=== PATIENT | female | born 1985 | race Caucasian/White ===

== ENCOUNTER 2017-09-26 03:31 | Inpatient (IN) | payer BC ==
[2017-09-26] MEDS ORDERED: Sodium Chloride 0.9% 10 ML Syringe FLUSH PRN (04:23)
[2017-09-26] MEDS ORDERED: Lidocaine 1% 50 ML MDV INJECT PRN (04:23)
[2017-09-26] MEDS ORDERED: Methylergonovine 0.2 MG/1 ML Amp IM PRN (04:23)
[2017-09-26] MEDS ORDERED: Water For Irrigation,Sterile 1,000 ML Container IRR PRN (04:23)
[2017-09-26] MEDS ORDERED: Nalbuphine 10 MG/1 ML Vial IVPUSH PRN (04:23)
[2017-09-26] MEDS ORDERED: Sodium Chloride 0.9% 2.5 ML Syringe FLUSH PRN (04:23)
[2017-09-26] MEDS ORDERED: Misoprostol 200 MCG Tab PO PRN (04:23)
[2017-09-26] MEDS ORDERED: Butorphanol 1 MG/ML SDV IVPUSH PRN (04:23)
[2017-09-26] MEDS ORDERED: Carboprost Tromethamine 250 MCG/1 ML Amp IM PRN (04:23)
[2017-09-26] MEDS ORDERED: Oxytocin/0.9 % Sodium Chloride 30 UNIT/500 ML BAG IV SCH ×2 (04:30→09:15)
[2017-09-26] MEDS: Lactated Ringers 1,000 ML IV SCH ×5 (04:43→09:22)
[2017-09-26] MEDS ORDERED: fentaNYL 100 MCG/2 ML SDV ONE (05:18)
[2017-09-26] MEDS ORDERED: Ropivacaine 0.2% 2 MG/ML 20 ML SDV ONE (05:19)
[2017-09-26] MEDS ORDERED: Ropivacaine HCl/PF 100 ML ONE (05:19)
--- NOTE | 2017-09-26 06:10 | PCM.PREANE ---
Preanesthetic Assessment - Anesthesia/Transfusion/Family Hx Family History of Anesthesia Reaction: No - Review of Systems General: No Symptoms Pulmonary: No Symptoms Cardiovascular: No Symptoms Gastrointestinal: No Symptoms Neurological: No Symptoms Other: Reports: None - Physical Assessment Height: 1.52 m Weight: 78.018 kg ASA Class: 2 Mental Status: Alert & Oriented x3 Dentition: Reports: Normal Dentition - Lab Values: Laboratory Last Values WBC 10.62 K/uL (4.0-11.0) 09/26/17 04:44 RBC 4.81 M/uL (4.30-5.90) 09/26/17 04:44 Hgb 12.4 g/dL (12.0-16.0) 09/26/17 04:44 Hct 38.4 % (36.0-46.0) 09/26/17 04:44 MCV 79.8 fL (80.0-98.0) L 09/26/17 04:44 MCH 25.8 pg (27.0-32.0) L 09/26/17 04:44 MCHC 32.3 g/dL (31.0-37.0) 09/26/17 04:44 RDW Std Deviation 44.1 fl (28.0-62.0) 09/26/17 04:44 RDW Coeff of Nettie 15 % (11.0-15.0) 09/26/17 04:44 Plt Count 272 K/uL (150-400) 09/26/17 04:44 MPV 11.20 fL (7.40-12.00) 09/26/17 04:44 Nucleated RBC % 0.0 /100WBC 09/26/17 04:44 Nucleated RBCs # 0 K/uL 09/26/17 04:44 Membrane Rupture POSITIVE 09/26/17 04:00 Blood Type A POSITIVE 09/26/17 04:44 Antibody Screen NEGATIVE 09/26/17 04:44 - Allergies Allergies/Adverse Reactions: Allergies Allergy/AdvReac Type Severity Reaction Status Date / Time No Known Allergies Allergy Verified 09/26/17 04:23 - Acknowledgements Anesthesia Type Planned: Epidural Pt an Appropriate Candidate for the Planned Anesthesia: Yes Alternatives and Risks of Anesthesia Discussed w Pt/Guardian: Yes Pt/Guardian Understands and Agrees with Anesthesia Plan: Yes Additional Comments: Patient and significant other both deny any questions or concerns after risks of spinal headache, infection, bleeding and uneven anesthesia described and wish to proceed. PreAnesthesia Questionnaire Hematologic History: Reports: None (Denies any personal or family hx of bleeding or clotting problems) - Past Surgical History Female Surgical History: Reports: Breast Implant (Breast augmentation) - CURRENT (IN HOUSE) MEDS Current Meds: Current Medications Butorphanol Tartrate (Stadol) 1 mg IVPUSH Q1H PRN PRN Reason: Pain Last Admin: 09/26/17 04:49 Dose: 1 mg Carboprost Tromethamine (Hemabate Ds) 250 mcg IM ASDIRECTED PRN PRN Reason: Post Hemorrhage Lactated Ringer's (Ringers, Lactated) 1,000 mls @ 150 mls/hr IV ASDIRECTED FREIDA Last Admin: 09/26/17 05:54 Dose: 999 mls/hr Oxytocin/Sodium Chloride (Oxytocin 30 Unit/500 Ml-Ns) 30 unit in 500 mls @ 999 mls/hr IV ASDIRECTED FREIDA Lidocaine HCl (Xylocaine 1%) 50 ml INJECT .ONCE PRN PRN Reason: Laceration repair Methylergonovine Maleate (Methergine) 0.2 mg IM ASDIRECTED PRN PRN Reason: Post Hemorrhage Misoprostol (Cytotec) 200 mcg PO .ONCE PRN PRN Reason: Post Hemorrhage Nalbuphine HCl (Nubain) 10 mg IVPUSH Q1H PRN PRN Reason: Pain (severe 7-10) Sodium Chloride (Saline Flush) 10 ml FLUSH ASDIRECTED PRN PRN Reason: Keep Vein Open Sodium Chloride (Saline Flush) 2.5 ml FLUSH ASDIRECTED PRN PRN Reason: Keep Vein Open Sterile Water (Sterile Water For Irrigation) 1,000 ml IRR ASDIRECTED PRN PRN Reason: delivery Discontinued Medications Fentanyl (Sublimaze) Confirm Administered Dose 300 mcg .ROUTE .STK-MED ONE Stop: 09/26/17 05:19 Ropivacaine (Naropin 0.2%) Confirm Administered Dose 100 mls @ as directed .ROUTE .STK-MED ONE Stop: 09/26/17 05:20 Ropivacaine (Naropin 0.2%) Confirm Administered Dose 20 ml .ROUTE .STK-MED ONE Stop: 09/26/17 05:20
[2017-09-26] MEDS ORDERED: Terbutaline 1 MG/ML SDV SUBCUT PRN (09:14)
[2017-09-26] MEDS ORDERED: Ibuprofen 400 MG Tab PO PRN (13:12)
[2017-09-26] MEDS ORDERED: Docusate Sodium 100 MG Cap PO PRN (13:12)
[2017-09-26] MEDS ORDERED: oxyCODONE 5 MG Tab PO PRN (13:12)
[2017-09-26] MEDS ORDERED: Lanolin 100% Cream 7 GM Tube TOP PRN (13:12)
[2017-09-26] MEDS ORDERED: Acetaminophen 500 MG Tab PO PRN ×2 (13:12)
[2017-09-26] MEDS ORDERED: Benzocaine/Menthol 20%-0.5% Spray 78 GM Cannister TOP PRN (13:12)
[2017-09-26] MEDS ORDERED: Bisacodyl 10 MG Supp RECTAL PRN (13:12)
[2017-09-26] MEDS ORDERED: Witch Hazel Medicated Pads 40/Jar TOP PRN (13:12)
[2017-09-26] MEDS ORDERED: Ibuprofen 800 MG Tab PO PRN (13:12)
--- NOTE | 2017-09-26 17:19 | PCM48HPAN ---
Post Anesthesia Note - EVALUATION WITHIN 48HRS OF ANESTHETIC Vital Signs in Normal Range: Yes Patient Participated in Evaluation: Yes Respiratory Function Stable: Yes Airway Patent: Yes Cardiovascular Function Stable: Yes Hydration Status Stable: Yes Pain Control Satisfactory: Yes Nausea and Vomiting Control Satisfactory: Yes Mental Status Recovered: Yes
--- NOTE | 2017-09-27 07:44 | PCM.PNPP ---
- General Info Date of Service: 09/27/17 Functional Status: Reports: Pain Controlled, Tolerating Diet, Ambulating, Urinating - Review of Systems General: Reports: Weakness. Denies: Fever, Fatigue, Chills HEENT: Denies: Headaches Pulmonary: Denies: Shortness of Breath, Pleuritic Chest Pain, Cough Cardiovascular: Denies: Chest Pain, Palpitations, Dyspnea on Exertion Gastrointestinal: Denies: Abdominal Pain, Vomiting Genitourinary: Denies: Dysuria, Urgency, Incontinence Psychiatric: Denies: Confusion, Mood Lability, Anxiety - General Info Date of Service: 09/27/17 - Patient Data Vital Signs - Most Recent: Last Vital Signs Temp 36.6 C 09/27/17 04:10 Pulse 115 H 09/27/17 04:10 Resp 16 09/27/17 04:10 BP 121/67 09/27/17 04:10 Pulse Ox 96 09/27/17 04:10 Weight - Most Recent: 172 lb Lab Results - Last 24 Hours: Laboratory Results - last 24 hr 09/27/17 Range/Units 05:06 Hgb 10.4 L (12.0-16.0) g/dL Hct 32.8 L (36.0-46.0) % Med Orders - Current: Current Medications Acetaminophen (Tylenol Extra Strength) 500 mg PO Q4H PRN PRN Reason: Pain Acetaminophen (Tylenol Extra Strength) 1,000 mg PO Q4H PRN PRN Reason: Pain Benzocaine/Menthol (Dermoplast Pain Relief 20%-0.5% Sterling) 78 gm TOP ASDIRECTED PRN PRN Reason: Perineal Comfort Measure Bisacodyl (Dulcolax) 10 mg RECTAL .ONCE PRN PRN Reason: Constipation Docusate Sodium (Colace) 100 mg PO BID PRN PRN Reason: Constipation Emollient Ointment (Lansinoh Hpa) 0 gm TOP ASDIRECTED PRN PRN Reason: Sore Nipples Ibuprofen (Motrin) 400 mg PO Q4H PRN PRN Reason: Pain Ibuprofen (Motrin) 800 mg PO Q6H PRN PRN Reason: Pain Oxycodone HCl (Oxycodone) 5 mg PO Q2H PRN PRN Reason: Pain Witch Carina (Tucks) 1 pad TOP ASDIRECTED PRN PRN Reason: comfort care Discontinued Medications Butorphanol Tartrate (Stadol) 1 mg IVPUSH Q1H PRN PRN Reason: Pain Last Admin: 09/26/17 04:49 Dose: 1 mg Carboprost Tromethamine (Hemabate Ds) 250 mcg IM ASDIRECTED PRN PRN Reason: Post Hemorrhage Fentanyl (Sublimaze) Confirm Administered Dose 300 mcg .ROUTE .SNAPP' ONE Stop: 09/26/17 05:19 Last Admin: 09/26/17 21:58 Dose: Not Given Lactated Ringer's (Ringers, Lactated) 1,000 mls @ 150 mls/hr IV ASDIRECTED FREIDA Last Admin: 09/26/17 09:22 Dose: 150 mls/hr Oxytocin/Sodium Chloride (Oxytocin 30 Unit/500 Ml-Ns) 30 unit in 500 mls @ 999 mls/hr IV ASDIRECTED FREIDA Ropivacaine (Naropin 0.2%) Confirm Administered Dose 100 mls @ as directed .ROUTE .SNAPP' ONE Stop: 09/26/17 05:20 Last Admin: 09/26/17 21:59 Dose: Not Given Oxytocin/Sodium Chloride (Oxytocin 30 Unit/500 Ml-Ns) 30 unit in 500 mls @ 2 mls/hr IV TITRATE FREIDA; 2 MUNITS/MIN PRN Reason: Protocol Last Titration: 09/26/17 12:25 Dose: 999 munits/min, 999 mls/hr Lidocaine HCl (Xylocaine 1%) 50 ml INJECT .ONCE PRN PRN Reason: Laceration repair Methylergonovine Maleate (Methergine) 0.2 mg IM ASDIRECTED PRN PRN Reason: Post Hemorrhage Misoprostol (Cytotec) 200 mcg PO .ONCE PRN PRN Reason: Post Hemorrhage Nalbuphine HCl (Nubain) 10 mg IVPUSH Q1H PRN PRN Reason: Pain (severe 7-10) Ropivacaine (Naropin 0.2%) Confirm Administered Dose 20 ml .ROUTE .SNAPP' ONE Stop: 09/26/17 05:20 Last Admin: 09/26/17 21:59 Dose: Not Given Sodium Chloride (Saline Flush) 10 ml FLUSH ASDIRECTED PRN PRN Reason: Keep Vein Open Sodium Chloride (Saline Flush) 2.5 ml FLUSH ASDIRECTED PRN PRN Reason: Keep Vein Open Sterile Water (Sterile Water For Irrigation) 1,000 ml IRR ASDIRECTED PRN PRN Reason: delivery Terbutaline Sulfate (Brethine) 0.25 mg SUBCUT ASDIRECTED PRN PRN Reason: Tacysystole - Interaction Infant Disposition, : in Room with Family Infant Interaction: Holding Infant Feeding: Breastfed ; Nursed Well Support Person: - Recovery Exam Fundal Tone: Firm Fundal Level: At Umbilicus Fundal Placement: Midline Lochia Amount: Scant Lochia Color: Rubra/Red Perineum Description: Intact, Minimal Bruising/Swelling Episiotomy/Laceration: None Bladder Status: Voiding - Exam General: Alert, Oriented HEENT: Pupils Equal, Pupils Reactive Neck: Supple Lungs: Clear to Auscultation, Normal Respiratory Effort Cardiovascular: Regular Rate, Regular Rhythm GI/Abdominal Exam: Soft, Non-Tender Extremities: Non-Tender, Pedal Edema Skin: Warm Psy/Mental Status: Alert, Normal Affect, Normal Mood - Problem List & Annotations (1) Vaginal delivery SNOMED Code(s): 388625451 Code(s): O80 - ENCOUNTER FOR FULL-TERM UNCOMPLICATED DELIVERY Status: Acute Current Visit: Yes - Problem List Review Problem List Initiated/Reviewed/Updated: Yes - My Orders Last 24 Hours: My Active Orders 09/26/17 09:14 Bedrest Bathroom Privileges [RC] ASDIRECTED Communication Order [RC] ASDIRECTED Communication Order [RC] ASDIRECTED Oxygen Therapy [RC] ASDIRECTED Vaginal Exam [RC] PRN Vital Signs [RC] PER UNIT ROUTINE 09/26/17 13:12 Patient Status [ADT] Routine May Shower [RC] ASDIRECTED Up ad Shivani [RC] ASDIRECTED Vital Signs [RC] PER UNIT ROUTINE Acetaminophen [Tylenol Extra Strength] 1,000 mg PO Q4H PRN Acetaminophen [Tylenol Extra Strength] 500 mg PO Q4H PRN Benzocaine/Menthol [Dermoplast Pain Relief 20%-0.5% Sterling] 78 gm TOP ASDIRECTED PRN Bisacodyl [Dulcolax] 10 mg RECTAL .ONCE PRN Docusate Sodium [Colace] 100 mg PO BID PRN Ibuprofen [Motrin] 400 mg PO Q4H PRN Ibuprofen [Motrin] 800 mg PO Q6H PRN Lanolin [Lansinoh HPA] See Dose Instructions TOP ASDIRECTED PRN Darlene Lim [Tucks] 1 pad TOP ASDIRECTED PRN oxyCODONE 5 mg PO Q2H PRN Assess Lochia [WOMSER] Per Unit Routine Assess Uterine Involution [WOMSER] Per Unit Routine Peripheral IV Discontinue [OM.PC] Routine Resuscitation Status Routine 09/26/17 Dinner Regular Diet [DIET] - Assessment Assessment:: PPD#1 s/p , stable and afebrile. Hgb stable Would like to be discharged today if baby gets to be discharged - Plan Plan:: May be discharged today if baby is discharged Discharge instructions reviewed Nothing in the vagina for 6 weeks Continue PNV and Use OTC meds for pain Bleeding and infection precautions reviewed depression symptoms reviewed Follow up in the clinic in 6 weeks
--- NOTE | 2017-09-27 13:50 | OR ---
SURGEON: Camilla Yañez MD DATE OF PROCEDURE: 09/26/2017 PREOPERATIVE DIAGNOSES: 1. Postdates at 40 weeks' gestation. 2. Spontaneous labor. POSTOPERATIVE DIAGNOSES: 1. Postdates at 40 weeks' gestation. 2. Spontaneous labor. 3. Delivered. PROCEDURE: Spontaneous vaginal delivery. ANESTHESIA: Epidural. ESTIMATED BLOOD LOSS: 150 mL. COMPLICATIONS: None. DISPOSITION: Mother and baby stable in Labor and Delivery room, [facility]. FINDINGS: Female , weight 3370 g, score 2 and 9 at 1 and 5 minutes respectively. Thick meconium stained amniotic fluid. Nuchal cord tight x 2. Grossly normal placenta with 3-vessel cord. Intact perineum. BRIEF HISTORY: Ofelia is a 32-year-old G5, P2-0-2-2 who presented to Labor and Delivery at 40 weeks' gestation with a history of regular contractions. The was uncomplicated. GBS negative. On admission to Labor and Delivery, she was found to be 5 cm dilated. She was admitted, requested epidural, which she received. Spontaneous rupture of membrane occurred with light meconium-stained amniotic fluid. She made rapid progress to 9 cm, where she stalled for at over 2 hours; position was OP, at which stage, oxytocin augmentation was commenced. heart tracing was mainly category II with recurrent deep variables noted intermittently. With maximum dose of Pitocin of 4 milliunits per minute,she eventually became fully dilated and commenced active pushing. With pushing, minimal progress/decent was made. She was reexamined and found to be LOT. Successful manual rotation was performed, rotating head JERRICA. She continued pushing, and with the next 3 contractions after the manual rotation, she brought the baby's head down to a +4 station and was set up for delivery in modified dorsolithotomy position. The scouring pads supervisor on-call, Dr. Haq was called to be attendant for the delivery, due to the meconium staining and also the persistent category II tracing. DESCRIPTION OF PROCEDURE: She had a spontaneous vaginal delivery of a live female infant in direct occipital anterior position, thick fresh meconium was noted at delivery. Nuchal cord, tight x2 was noted. These were reduced after the head had restituted. Anterior and the posterior shoulder and the rest of the baby was then delivered without difficulty. The baby was floppy at delivery. The cord was double clamped and cut, and she was handed over to the scouring pads supervisor, Dr. Haq. With delivery of the , oxytocin infusion was changed to titration for active management of third stage of labor. Cord blood and gas samples were obtained. Placenta was delivered by controlled cord traction and appeared to be complete and intact. Uterine massage was performed. The uterus was found to be well-contracted below the umbilicus. Perineum was examined, and no lacerations were noted. Sponge, instrument, and needle counts were correct at the end of the delivery. The baby transitioned well and remained in the room with the mother. ADUMVIV / MODL /[id number]
== END 2017-09-28 12:35 | disposition home or self-care (01) | DRG 560 ==
LOC: MW.OBCHECK 03:31 → MW.OB 03:33 → MW.OBCHECK 04:38 → OBSVTOIN 12:24 → MW.OB 18:46
PROVIDERS: ADMIT Obstetrics & Gynecology; ATTEND Obstetrics & Gynecology
PROC: 10E0XZZ Delivery of Products of Conception, External Approach (ICD-10-PCS; principal; 2017-09-26)
DX: O42.02 Full-term premature rupture of membranes, onset of labor within 24 hours of rupture (principal); O77.0 Labor and delivery complicated by meconium in amniotic fluid; O69.1XX0 Labor and delivery complicated by cord around neck, with compression, not applicable or unspecified; Z3A.40 40 weeks gestation of pregnancy; Z37.0 Single live birth
CPT/HCPCS: 36415; 51702; 59025; 59409; 84112; 85014; 85018; 85027; 86850; 86900; 86901; 88307; J0595; J2590; J2795; J3010; J7120

== ENCOUNTER 2018-02-04 21:03 | Emergency (ER) | payer BC ==
--- NOTE | 2018-02-04 22:01 | EDM.PDOC ---
ED HPI GENERAL MEDICAL PROBLEM - General Chief Complaint: DOOR TENDER Problem Stated Complaint: BLOCKED MAMMARY DUCT Time Seen by Provider: 02/04/18 21:54 Source of Information: Reports: Patient History Limitations: Reports: No Limitations - History of Present Illness INITIAL COMMENTS - FREE TEXT/NARRATIVE: HISTORY AND PHYSICAL: History of present illness: Patient is a 32-year-old female who presents to the emergency room with complaints of fever, redness and tenderness to the right breast. She had a vaginal delivery in no September 2018 and since that time has been breast- feeding. Has had no complications with breast-feeding. She states she is able to pump the right breast but is still having pain. Has been using Tylenol over- the-counter for discomfort. Has previously had a episode of mastitis with her previous pregnancies/delivery and states that the symptoms are consistent with that. Review of systems: As per history of present illness and below otherwise all systems reviewed and negative. Past medical history: As per history of present illness and as reviewed below otherwise noncontributory. Surgical history: As per history of present illness and as reviewed below otherwise noncontributory. Social history: No reported history of drug or alcohol abuse. Family history: As per history of present illness and as reviewed below otherwise noncontributory. Physical exam: General: Developed and well nourished 32-year-old female. Alert and oriented. Nontoxic appearing and in no acute distress. HEENT: Atraumatic, normocephalic, pupils reactive, negative for conjunctival pallor or scleral icterus, mucous membranes moist, throat clear, neck supple, nontender, trachea midline. Lungs: Clear to auscultation, breath sounds equal bilaterally, chest nontender. Heart: S1S2, regular rate and rhythm without overt murmur. Abdomen: Soft, nondistended, nontender. Negative for masses or hepatosplenomegaly. Negative for costovertebral tenderness. Pelvis: Stable nontender. Genitourinary: Deferred. Rectal: Deferred. Extremities: Atraumatic, negative for cords or calf pain. Neurovascular unremarkable. Neuro: Awake, alert, oriented. Cranial nerves II through XII unremarkable. Cerebellum unremarkable. Motor and sensory unremarkable throughout. Exam nonfocal. Skin: Erythema and tenderness to the 6 to 8 o'clock position of the right breast. No lesions or masses noted. Not appear cellulitic. Patient was placed on dicloxacillin and 500mg; 4 times daily 7 days. Curvature with close follow-up with her DOOR TENDER. She voices understanding and is agreeable to plan of care. She denies any questions at this time. Diagnostics: [] Therapeutics: [] Impression: Mastitis Plan: 1. Please apply gentle heat compresses to the breast. Take your antibiotic as prescribed. Continue to pump the right breast (Pump & Dump). 2. Tell your DOOR TENDER that you have been evaluated in the emergency room and that treated for mastitis. Once antibiotics are complted, please see your OBGYN If you continue to have redness and tenderness - you may need additional antibiotics. 3. Follow-up with your primary care provider/DOOR TENDER in the next couple days. Return to the ED as needed and as discussed. Definitive disposition and diagnosis as appropriate pending reevaluation and review of above. Onset: Today Duration: Hour(s): Location: Reports: Chest right breast Pain Score (Numeric/FACES): 4 - Related Data Allergies Allergy/AdvReac Type Severity Reaction Status Date / Time No Known Allergies Allergy Verified 02/04/18 21:46 Home Meds: Home Meds . [No Known Home Meds] 02/04/18 [History] Past Medical History DOOR TENDER History: Reports: , Spontaneous Hematologic History: Reports: None (Denies any personal or family hx of bleeding or clotting problems) - Past Surgical History Female Surgical History: Reports: Breast Implant (Breast augmentation) Social & Family History - Family History Family Medical History: Noncontributory - Tobacco Use Smoking Status *Q: Never Smoker Second Hand Smoke Exposure: No - Caffeine Use Caffeine Use: Reports: Coffee, Soda - Recreational Drug Use Recreational Drug Use: No ED ROS GENERAL - Review of Systems Review Of Systems: ROS reveals no pertinent complaints other than HPI. ED EXAM, SKIN/RASH Exam: See Below (See dictation) Course - Vital Signs Last Recorded V/S: Last Vital Signs Temp 96.8 F 02/04/18 21:42 Pulse 130 H 02/04/18 21:42 Resp 18 02/04/18 21:42 BP 114/80 02/04/18 21:42 Pulse Ox 97 02/04/18 21:42 Departure - Departure Time of Disposition: 22:01 Disposition: Home, Self-Care 01 Clinical Impression: Mastitis - Discharge Information Instructions: Mastitis, [id number] Referrals: Nancy Bone DO [Primary Care Provider] - Additional Instructions: My general discharge The following information is given to patients seen in the emergency department who are being discharged to home. This information is to outline your options for follow-up care. We provide all patients seen in our emergency department with a follow-up referral. The need for follow-up, as well as the timing and circumstances, are variable depending upon the specifics of your emergency department visit. If you don't have a primary care physician on staff, we will provide you with a referral. We always advise you to contact your personal physician following an emergency department visit to inform them of the circumstance of the visit and for follow-up with them and/or the need for any referrals to a consulting specialist. The emergency department will also refer you to a specialist when appropriate. This referral assures that you have the opportunity for follow-up care with a specialist. All of these measure are taken in an effort to provide you with optimal care, which includes your follow-up. Under all circumstances we always encourage you to contact your private physician who remains a resource for coordinating your care. When calling for follow-up care, please make the office aware that this follow-up is from your recent emergency room visit. If for any reason you are refused follow-up, please contact the [facility] Emergency Department at and asked to speak to the emergency department charge nurse. [facility] [address] [place] [id number] 1. Please apply gentle heat compresses to the breast. Take your antibiotic as prescribed. Continue to pump the right breast (Pump & Dump). 2. Tell your DOOR TENDER that you have been evaluated in the emergency room and that treated for mastitis. Once antibiotics are complted, please see your OBGYN If you continue to have redness and tenderness - you may need additional antibiotics. 3. Follow-up with your primary care provider/DOOR TENDER in the next couple days. Return to the ED as needed and as discussed.
[2018-02-04] MEDS ORDERED: cefTRIAXone 1,000 MG in Lidocaine 1% 4 ML IM ONE (22:02)
== END 2018-02-04 22:45 | disposition home or self-care (01) ==
LOC: MW.ED 21:03
DX: N61.0 Mastitis without abscess (principal)
CPT/HCPCS: 96372; 99283; J0696

== ENCOUNTER 2019-08-16 05:38 | Inpatient (IN) | payer BC ==
[2019-08-16] MEDS ORDERED: Sodium Chloride 0.9% 2.5 ML Syringe FLUSH PRN (05:51)
[2019-08-16] MEDS ORDERED: Sodium Chloride 0.9% 10 ML Syringe FLUSH PRN (05:51)
[2019-08-16] MEDS ORDERED: Sodium Chloride 0.9% 10 ML SDV IV PRN (05:51)
[2019-08-16] MEDS ORDERED: Misoprostol 200 MCG Tab PO PRN (05:51)
[2019-08-16] MEDS ORDERED: Ondansetron 4 MG/2 ML SDV IVPUSH PRN (05:51)
[2019-08-16] MEDS ORDERED: Butorphanol 1 MG/ML SDV IVPUSH PRN (05:51)
[2019-08-16] MEDS ORDERED: Methylergonovine 0.2 MG/1 ML Amp IM PRN (05:51)
[2019-08-16] MEDS ORDERED: Water For Irrigation,Sterile 1,000 ML Container IRR PRN (05:51)
[2019-08-16] MEDS ORDERED: Lidocaine 1% 50 ML MDV INJECT PRN (05:51)
[2019-08-16] MEDS ORDERED: Nalbuphine 10 MG/1 ML Vial IVPUSH PRN (05:51)
[2019-08-16] MEDS ORDERED: Tranexamic Acid 1,000 MG in Sodium Chloride 0.9% 100 ML IV PRN (05:51)
[2019-08-16] MEDS ORDERED: Carboprost Tromethamine 250 MCG/1 ML Amp IM PRN (05:51)
[2019-08-16] MEDS ORDERED: Lactated Ringers 1,000 ML IV SCH (06:00)
[2019-08-16] MEDS ORDERED: Oxytocin/0.9 % Sodium Chloride 30 UNIT/500 ML BAG IV SCH (06:00)
[2019-08-16] MEDS ORDERED: Acetaminophen 500 MG Tab PO PRN ×2 (07:06)
[2019-08-16] MEDS ORDERED: Ibuprofen 400 MG Tab PO PRN (07:06)
[2019-08-16] MEDS ORDERED: Docusate Sodium 100 MG Cap PO PRN (07:06)
[2019-08-16] MEDS ORDERED: Bisacodyl 10 MG Supp RECTAL PRN (07:06)
[2019-08-16] MEDS ORDERED: Benzocaine/Menthol 20%-0.5% Spray 78 GM Cannister TOP PRN (07:06)
[2019-08-16] MEDS ORDERED: Lanolin 100% Cream 7 GM Tube TOP PRN (07:06)
[2019-08-16] MEDS ORDERED: Witch Hazel Medicated Pads 40/Jar TOP PRN (07:06)
[2019-08-16] MEDS ORDERED: Measles, Mumps & Rubella Vaccine 0.5 ML SDV SUBCUT ONE (07:06)
[2019-08-16] MEDS: Ibuprofen 800 MG Tab PO PRN ×2 (12:01→23:37)
--- NOTE | 2019-08-16 13:25 | OR ---
SURGEON: Dylan Michelle MD DATE OF PROCEDURE: 08/16/2019 INDICATION: A 34-year-old, G6, P3-0-2-3, at 39 weeks and 2 days presenting in spontaneous labor. She quickly progressed to 9/100/+1 with strong contractions. S/p had AROM with clear fluid. Category 1 tracing. PREOPERATIVE DIAGNOSES: 1. Intrauterine at 39 weeks 2 days. 2. Active second stage of labor. POSTOPERATIVE DIAGNOSES: 1. Intrauterine at 39 weeks 2 days. 2. Active second stage of labor. PROCEDURE: Normal spontaneous vaginal delivery. ANESTHESIA: None. FINDINGS: Ding intrauterine at 39 weeks and 2 days. Female fetus. score of 9 and 9. Weight is pending. EBL: 300cc DESCRIPTION OF PROCEDURE: The patient progressed 10/100/+2 and pushed with contractions for approximately 10 minutes. Category 1 tracing with early decelerations. The head was delivered over intact perineum, restituted ROT. No nuchal cord. The anterior shoulder was delivered easily followed by the posterior shoulder and the remaining body. Baby was crying, pink and moved all extremities immediately after delivery. The baby was placed on the maternal chest and evaluated by nursery team. Umbilical cord was clamped and cut after 60 seconds of no longer pulsating. The cord gases were obtained. The placenta was delivered with gentle traction on the umbilical cord. The fundus was firm and below the umbilicus, bleeding was minimal. No lacerations were noted. care instructions were provided. TED / BORIS /[id number]
--- NOTE | 2019-08-17 12:28 | PCM.PNPP ---
- General Info Date of Service: 08/17/19 Subjective Update: Feeling well. No issues. Functional Status: Reports: Pain Controlled, Tolerating Diet, Ambulating, Urinating - Review of Systems General: Reports: No Symptoms HEENT: Reports: No Symptoms Pulmonary: Reports: No Symptoms Cardiovascular: Reports: No Symptoms Gastrointestinal: Reports: No Symptoms Genitourinary: Reports: No Symptoms Musculoskeletal: Reports: No Symptoms Skin: Reports: No Symptoms Neurological: Reports: No Symptoms Psychiatric: Reports: No Symptoms - Patient Data Vital Signs - Most Recent: Last Vital Signs Temp 36.7 C 08/17/19 08:26 Pulse 103 H 08/17/19 08:26 Resp 17 08/17/19 08:26 BP 135/84 08/17/19 08:26 Pulse Ox 99 08/17/19 08:26 Weight - Most Recent: 172 lb Lab Results - Last 24 Hours: Laboratory Results - last 24 hr 08/17/19 Range/Units 06:03 Hgb 10.8 L (12.0-16.0) g/dL Hct 34.1 L (36.0-46.0) % Med Orders - Current: Current Medications Acetaminophen (Tylenol Extra Strength) 500 mg PO Q4H PRN PRN Reason: Pain Acetaminophen (Tylenol Extra Strength) 1,000 mg PO Q4H PRN PRN Reason: Pain Benzocaine/Menthol (Dermoplast Pain Relief 20%-0.5% [place]) 0 gm TOP ASDIRECTED PRN PRN Reason: Perineal Comfort Measure Last Admin: 08/16/19 09:21 Dose: 1 canister Bisacodyl (Dulcolax) 10 mg RECTAL ONETIME PRN PRN Reason: Constipation Butorphanol Tartrate (Stadol) 1 mg IVPUSH Q1H PRN PRN Reason: Pain Carboprost Tromethamine (Hemabate Ds) 250 mcg IM ASDIRECTED PRN PRN Reason: Post Hemorrhage Docusate Sodium (Colace) 100 mg PO BID PRN PRN Reason: Constipation Emollient Ointment (Lansinoh Hpa) 0 gm TOP ASDIRECTED PRN PRN Reason: Sore Nipples Last Admin: 08/16/19 09:20 Dose: 1 tube Lactated Ringer's (Ringers, Lactated) 1,000 mls @ 150 mls/hr IV ASDIRECTED FREIDA Last Admin: 08/16/19 06:07 Dose: 999 mls/hr Oxytocin/Sodium Chloride (Oxytocin 30 Unit/500 Ml-Ns) 30 unit in 500 mls @ 999 mls/hr IV TITRATE [facility] Last Admin: 08/16/19 06:38 Dose: 999 mls/hr Tranexamic Acid 1,000 mg/ (Sodium Chloride) 110 mls @ 660 mls/hr IV ONETIME PRN PRN Reason: Bleeding Ibuprofen (Motrin) 400 mg PO Q4H PRN PRN Reason: Pain Ibuprofen (Motrin) 800 mg PO Q6H PRN PRN Reason: Pain Last Admin: 08/16/19 23:37 Dose: 800 mg Lidocaine HCl (Xylocaine 1%) 50 ml INJECT ONETIME PRN PRN Reason: Laceration repair Methylergonovine Maleate (Methergine) 0.2 mg IM ASDIRECTED PRN PRN Reason: Post Hemorrhage Misoprostol (Cytotec) 200 mcg PO ONETIME PRN PRN Reason: Post Hemorrhage Nalbuphine HCl (Nubain) 10 mg IVPUSH Q1H PRN PRN Reason: Pain (severe 7-10) Ondansetron HCl (Zofran) 4 mg IVPUSH Q6H PRN PRN Reason: Nausea/Vomiting Sodium Chloride (Saline Flush) 10 ml FLUSH ASDIRECTED PRN PRN Reason: Keep Vein Open Sodium Chloride (Saline Flush) 2.5 ml FLUSH ASDIRECTED PRN PRN Reason: Keep Vein Open Sodium Chloride (Normal Saline) 10 ml IV ASDIRECTED PRN PRN Reason: IV Use Sterile Water (Sterile Water For Irrigation) 1,000 ml IRR ASDIRECTED PRN PRN Reason: delivery Witch Carina (Tucks) 1 pad TOP ASDIRECTED PRN PRN Reason: comfort care Last Admin: 08/16/19 09:21 Dose: 1 tub Discontinued Medications Influenza Virus Vaccine (Pharmacy To Dose - Influenza Vaccine) 1 each IM ONETIME ONE Stop: 08/16/19 07:49 Influenza Virus Vaccine (Fluzone Quad [id number] Syringe) 60 mcg IM .ONCE ONE Stop: 08/16/19 09:01 Measles/Mumps/Rubella Vaccine Live (M-M-R Ii Vaccine) 0.5 ml SUBCUT .ONCE ONE Stop: 08/16/19 07:07 - Interaction Disposition, : at Bedside Infant Interaction: Holding Infant Feeding: Breastfed ; Nursed Well Support Person: - Recovery Exam Fundal Tone: Firm Fundal Level: 1 Fingerbreadths Below Umbilicus Fundal Placement: Midline Lochia Amount: Scant Lochia Color: Rubra/Red Perineum Description: Intact, Minimal Bruising/Swelling Episiotomy/Laceration: None Bladder Status: Voiding Urinary Elimination: Voided - Exam General: Alert, Oriented, No Acute Distress HEENT: Pupils Equal, Pupils Reactive Neck: Supple, Trachea Midline Lungs: Normal Respiratory Effort GI/Abdominal Exam: Soft, Non-Tender, No Distention Extremities: Normal Inspection, Non-Tender, No Pedal Edema Skin: Warm, Dry, Intact Neurological: No New Focal Deficit Psy/Mental Status: Alert, Normal Affect, Normal Mood - Problem List Review Problem List Initiated/Reviewed/Updated: Yes - My Orders Last 24 Hours: My Active Orders 08/17/19 11:58 Ready for Discharge [RC] PER UNIT ROUTINE - Assessment Assessment:: 34yo PPD1 s/p at 39w2d, stable - VSS - Hgb 10.8 this AM, bleeding minimal, no s/s of anemia. Continue PNV. - ambulate - pain minimal Stable for discharge home today.
== END 2019-08-17 13:15 | disposition home or self-care (01) | DRG 560 ==
LOC: MW.OBCHECK 05:38 → MW.OB 05:49 → MW.OBCHECK 06:30 → MW.OB 06:31 → OBSVTOIN 06:37 → MW.OB 11:18
PROVIDERS: ADMIT Obstetrics & Gynecology; ATTEND Obstetrics & Gynecology
PROC: 10E0XZZ Delivery of Products of Conception, External Approach (ICD-10-PCS; principal; 2019-08-16)
PROC: 10907ZC Drainage of Amniotic Fluid, Therapeutic from Products of Conception, Via Natural or Artificial Opening (ICD-10-PCS; 2019-08-16)
DX: O76 Abnormality in fetal heart rate and rhythm complicating labor and delivery (principal); Z3A.39 39 weeks gestation of pregnancy; Z37.0 Single live birth
CPT/HCPCS: 36415; 59025; 59409; 85014; 85018; 85027; 86850; 86900; 86901; 90707; A9270-GY; J2590; J7120